=== PATIENT | female | born 1960 | race Caucasian/White ===

== ENCOUNTER 2017-12-12 17:22 | Emergency (ER) | payer MEDICAID, OTHER ==
[~2017-12-12] VITALS: Ht 177.8 cm; Wt 81.6 kg
[2017-12-12 17:50] VITALS: BP 159/90
== END 2017-12-12 19:14 | disposition home or self-care (01) ==
LOC: ER 17:28
DX: J40 Bronchitis, not specified as acute or chronic (principal); F17.210 Nicotine dependence, cigarettes, uncomplicated; H92.09 Otalgia, unspecified ear; Z90.710 Acquired absence of both cervix and uterus

== ENCOUNTER 2020-09-16 00:57 | Emergency (ER) | payer MEDICAID ==
[~2020-09-16] VITALS: Ht 167.6 cm; Wt 78.0 kg
[2020-09-16 01:21] VITALS: BP 132/64
== END 2020-09-16 03:51 | disposition home or self-care (01) ==
LOC: ER 00:57
DX: S33.5XXA Sprain of ligaments of lumbar spine, initial encounter (principal); M54.16 Radiculopathy, lumbar region; X58.XXXA Exposure to other specified factors, initial encounter; Y93.89 Activity, other specified; Y92.89 Other specified places as the place of occurrence of the external cause; Y99.8 Other external cause status
CPT/HCPCS: 72100; 72131

== ENCOUNTER 2020-09-20 02:30 | Emergency (ER) | payer MEDICAID ==
[~2020-09-20] VITALS: Ht 167.6 cm; Wt 78.0 kg
[2020-09-20 05:21] VITALS: BP 117/75
== END 2020-09-20 05:39 | disposition home or self-care (01) ==
LOC: ER 02:43
DX: S83.91XA Sprain of unspecified site of right knee, initial encounter (principal); S09.90XA Unspecified injury of head, initial encounter; N39.0 Urinary tract infection, site not specified; R10.84 Generalized abdominal pain; F17.210 Nicotine dependence, cigarettes, uncomplicated; Z90.710 Acquired absence of both cervix and uterus; Z88.6 Allergy status to analgesic agent; Z88.2 Allergy status to sulfonamides; V89.2XXA Person injured in unspecified motor-vehicle accident, traffic, initial encounter; Y93.89 Activity, other specified; Y92.89 Other specified places as the place of occurrence of the external cause; Y99.8 Other external cause status
CPT/HCPCS: 70450; 73560; 74176

== ENCOUNTER 2021-06-04 02:51 | Emergency (ER) | payer MEDICAID ==
[~2021-06-04] VITALS: Ht 170.2 cm; Wt 78.5 kg
[2021-06-04 04:27] VITALS: BP 133/80
== END 2021-06-04 06:36 | disposition home or self-care (01) ==
LOC: ER 02:51
DX: M79.10 Myalgia, unspecified site (principal); M25.511 Pain in right shoulder; F17.210 Nicotine dependence, cigarettes, uncomplicated; Z90.710 Acquired absence of both cervix and uterus; Z88.2 Allergy status to sulfonamides; Z88.8 Allergy status to other drugs, medicaments and biological substances; Z88.6 Allergy status to analgesic agent
CPT/HCPCS: 71250; 74176; 93005

== ENCOUNTER 2024-05-30 16:19 | Emergency (ER) | payer MEDICAID, OTHER ==
[~2024-05-30] VITALS: Ht 170.2 cm; Wt 85.3 kg
[2024-05-30] MEDS: HYDROcodone-ACET 10/325MG TAB PO ONE (17:56)
[2024-05-30 18:00] VITALS: BP 136/79; PULSE 78; RESP 20; TEMP 97.8; O2SAT 95
[2024-05-30] MEDS: HYDROcodone-ACET 5/325MG TAB PO ONE (18:01)
[2024-05-30] MEDS: KETOROLAC TROMETH 60MG/2ML VIAL IM ONE (18:01)
[2024-05-30 18:14] LABS: Urine Bacteria None Seen /hpf (None Seen)
[2024-05-30 18:34] LABS: Urine Blood 1+ /uL (Negative); Urine Clarity Clear (Clear); Urine Color Yellow (Yellow); Urine Mucus FEW (None Seen); Urine Protein, UAD TRACE (Negative); Urine Specific Gravity 1.035 (1.001-1.035); Urine Urobilinogen Normal (Negative); Urine WBC 7 /hpf (0 - 5); Urine pH 5.5 (5.0-9.0)
== END 2024-05-30 21:56 | disposition left against medical advice (07) ==
LOC: ER 16:19
DX: M54.9 Dorsalgia, unspecified (principal); M79.602 Pain in left arm; M79.601 Pain in right arm; Z53.21 Procedure and treatment not carried out due to patient leaving prior to being seen by health care provider
CPT/HCPCS: 81001; 96372; J1885

== ENCOUNTER 2024-08-19 23:20 | Emergency (ER) | payer OTHER ==
[~2024-08-19] VITALS: Ht 170.2 cm; Wt 87.8 kg
[2024-08-19 23:25] VITALS: BP 140/80; PULSE 84; RESP 20; O2SAT 95
== END 2024-08-20 03:21 | disposition home or self-care (01) ==
LOC: ER 23:20
DX: R07.81 Pleurodynia (principal); R05.9 Cough, unspecified
CPT/HCPCS: 71111

== ENCOUNTER 2024-11-10 16:03 | Emergency (ER) | payer OTHER ==
[~2024-11-10] VITALS: Ht 167.6 cm; Wt 88.4 kg
--- NOTE | 2024-11-10 17:05 | ED.PDOC ---
History of Present Illness HPI Comments 64 y/o F, with a Hx of arthritis and obesity, presents with c/o left shoulder, arm, and hand pain for 5x weeks, today. Patient endorses on sudden and unprovoked onset of symptoms that has been persisting since. She states on pain originating in her left shoulder and radiating down throughout her arm and hand. She reports no additional relevant or pertinent Hx, such as recent injuries or strenuous activities. She denies any weakness, tingling, numbness, or other associated symptoms or modifiers at this time. Chief Complaint: Upper Extremity Time Seen by MD: 16:15 Primary Care Provider: CIERRA Reviewed Notes: Nurses Notes, Medications, Allergies Allergies: Coded Allergies: Aspirin (Verified Allergy, Unknown, 09/16/20) Naproxen (Verified Allergy, Unknown, 09/16/20) Sulfa Antibiotics (Verified Allergy, Unknown, 09/16/20) Information Source: Patient Mode of Arrival: Carried Severity: Moderate Timing: Weeks Duration: Since onset Prehospital treatment: None Past Medical History PAST MEDICAL HISTORY: Arthritis Past Medical History (Other): obesity Surgical History: Hysterectomy MEDICAL STAFF SPECIALIST History: No Pertinent MEDICAL STAFF SPECIALIST History Family History Family History: Reviewed,noncontributory to illness, No family hx of Cancer, No family hx of DM, No family hx of Heart pete, No family hx of HTN, No family hx ofKidney pete, No family hx of Liver pete, No family hx of Lung pete, No family hx of Stroke Social History Smoker: Cigarettes, Less Than 1 Pack/Day Alcohol: Denies ETOH Use Drugs: Denies Drug Use Lives In: Home Constitutional: denies: chills, diaphoresis, fatigue, fever, malaise, sweats, weakness, others EENTM: denies: blurred vision, double vision, ear bleeding, ear discharge, ear drainage, ear pain, ear ringing, eye pain, eye redness, hearing loss, mouth pain, mouth swelling, nasal discharge, nose bleeding, nose congestion, nose pain, photophobia, tearing, throat pain, throat swelling, voice changes, others Respiratory: denies: cough, hemoptysis, orthopnea, SOB at rest, shortness of breath, SOB with excertion, stridor, wheezing, others Cardiovascular: denies: chest pain, dizzy spells, diaphoresis, Dyspnea on exertion, edema, irregular heart beat, left arm pain, lightheadedness, palpitations, PND, syncope, others Gastrointestinal: denies: abdomen distended, abdominal pain, blood streaked bowels, constipated, diarrhea, dysphagia, difficulty swallowing, hematemesis, melena, nausea, poor appetite, poor fluid intake, rectal bleeding, rectal pain, vomiting, others Genitourinary: denies: abnormal vagina bleeding, burning, dyspareunia, dysuria, flank pain, frequency, hematuria, incontinence, pain, , vagina discharge, urgency, others Neurological: denies: dizziness, fainting, headache, left sided numbness, left sided weakness, numbness, paresthesia, pre-existing deficit, right sided numbness, right sided weakness, seizure, speech problems, tingling, tremors, weakness, others Musculoskeletal: reports: joint pain, others (left shoulder and arm and hand pain ); denies: back pain, gout, joint swelling, muscle pain, muscle stiffness, neck pain Integumetry: denies: bruises, change in color, change in hair/nails, dryness, laceration, lesions, lumps, rash, wounds, others Allergic/Immunocompromised: denies: Difficulty Healing, Frequent Infections, Hives, Itching, others Hematologic/Lymphatic: denies: anemia, blood clots, easy bleeding, easy bruising, swollen glands, others All Other Systems: Reviewed and Negative (negative unless otherwise stated above or in HPI) Physical Exam General Appearance: No Apparent Distress, Obese HEENT: Normal ENT Inspection, Pharynx Normal, TMs Normal Neck: Full Range of Motion, Non-Tender, Normal, Normal Inspection Respiratory: Chest Non-Tender, Lungs Clear, No Accessory Muscle Use, No Respira tory Distress, Normal Breath Sounds Cardiovascular: No Edema, No JVD, No Murmur, No Gallop, Normal Peripheral Pulses, Regular Rate/Rhythm Breast Exam: Deferred Gastrointestinal: No Organomegaly, Non Tender, No Pulsatile Mass, Normal Bowel Sounds, Soft Genitalia: Deferred Pelvic: Deferred Rectal: Deferred Extremities: No calf tenderness, Normal capillary refill, Normal inspection, Normal range of motion, No pedal edema, Other (left trapezius muscle tenderness) Musculoskeletal : Location: Left Extremity Location: Shoulder (left trapezius muscle tenderness) Apperance: Normal, Tenderness Neurologic: Alert, various exceptionalities teacher II-XII nml as Tested, No Motor Deficits, Normal Affect, Normal Mood, No Sensory Deficits Cerebellar Function: Normal Reflexes: Normal Skin: Dry, Normal Color, Warm Lymphatic: No Adenopathy Was a procedure done? Was a procedure done?: No Differential Dx Considerations may include: arthritis, radiculopathy X-Ray, Labs, Meds, VS Vital Signs Date Time Temp Pulse Resp B/P (MAP) Pulse Ox O2 Delivery O2 Flow Rate FiO2 11/10/24 16:13 97.5 87 20 148/83 (104) 97 [facility] [id number] [place] [id number] Ph: [phone] DIAGNOSTIC IMAGING Diagnostic Imaging Report : [id number] Signed PATIENT: NIKI GARCIA ACCT: [id number] UNIT: [id number] : 1960 LOC: ER ROOM / BED: / AGE / SEX: 64 / F ADM STATUS: REG ER SERVICE [id number] ORDERING PHYSICIAN: NOEMY PENN PROCEDURE(s): LSHD2 - L SHOULDER 2+ VIEW XRAY REASON: pain ORDER NUMBER(s): [id number], ACCESSION NUMBER(s): [id number] XY L SHOULDER 2+ VIEW XRAY INDICATION: pain TECHNICAL DATA: 3 views were obtained of the left shoulder. COMPARISON: None FINDINGS: There is no fracture or focal bone abnormality. The glenohumeral joint is normally maintained. The acromioclavicular joint appears normal. The humeral head is not high riding. Adjacent soft tissues are within normal limits. Degenerative changes are noted involving the visualized spine. IMPRESSION: No acute fracture or dislocation of the left shoulder. ATED BY: CORA MOSER DO DICTATED DATE/TIME: 11/10/241707 SIGNED BY: CORA MOSER DO SIGNED DATE/TIME: 11/10/241707 CC: X-Ray, Labs, Meds, VS Comment Imaging: X-rays and CT scans were reviewed and interpreted by this provider, imaging shows no fractures and no pathological disease. Pending radiology review. Laboratory: Labs reviewed and interpreted by this provider. No significant abnormalities noted. Patient has prior medical visits reviewed. Med reconciliation performed Vital signs reviewed Time of 1ST Reevaluation: 16:45 Reevaluation 1ST: Unchanged Patient Education/Counseling: Diagnosis, Treatment, Need For Follow Up (Patient advised to follow-up in the emergency room in the next 24 to 48 hours if symptoms do not improve. Advised follow-up with PCP in the next 3 to 5 days. Patient verbalized understanding. ) Family Education/Counseling: No Family Present Departure 1 Departure Time of Disposition: 18:07 Impression: Primary Impression: Musculoskeletal pain Additional Impression: Left shoulder pain Qualified Codes: M25.512 - Pain in left shoulder; G89.29 - Other chronic pain Disposition: HOME / SELF CARE / HOMELESS Condition: Fair e-Prescriptions Methylprednisolone (Medrol Dosepak) 4 Mg Joss 4 MG PO UD, #21 TAB UAD Prov: NOEMY PENN 11/10/24 Cyclobenzaprine Hcl (Cyclobenzaprine Hcl) 5 Mg Tab 1 TAB PO TID PRN, #30 TAB Prov: NOEMY PENN 11/10/24 Discharged With: Self Critical Care Note Critical Care Time?: No Stability Stability form required: No Heart Score Heart Score: Heart Score Response (Comments) Value History N/A 0 EKG N/A 0 Age N/A 0 Risk Factors N/A 0 Troponin N/A 0 Total 0 I personally scribed for NOEMY PENN ([email or web address]) on 11/10/24 at 17:04. Electronically submitted by Moises Cyole ([email or web address]). I personally scribed for NOEMY PENN ([email or web address]) on 11/10/24 at 17:23. Electronically submitted by Moises Coyle ([email or web address]). NOEMY PENN Nov 10, 2024 17:04
--- NOTE | 2024-11-10 17:10 | DVH ---
XY L SHOULDER 2+ VIEW XRAY INDICATION: pain TECHNICAL DATA: 3 views were obtained of the left shoulder. COMPARISON: None FINDINGS: There is no fracture or focal bone abnormality. The glenohumeral joint is normally maintained. The ac romioclavicular joint appears normal. The humeral head is not high riding. Adjacent soft tissues are within normal limits. Degenerative changes are noted involving the visualized spine. IMPRESSION: No acute fracture or dislocation of the left shoulder.
[2024-11-10] MEDS ORDERED: METH4PAK PO (18:07)
[2024-11-10] MEDS ORDERED: CYCL-837 PO (18:07)
[2024-11-10 18:46] VITALS: BP 134/76; TEMP 98
[2024-11-10 18:50] VITALS: PULSE 78; RESP 18; O2SAT 98
[2024-11-10] MEDS: methylPREDNISolone SOD SUCC 125 MG/2 ML VL IM ONE (18:56)
== END 2024-11-10 18:30 | disposition home or self-care (01) ==
LOC: ER 16:03
DX: G89.29 Other chronic pain (principal); M25.512 Pain in left shoulder; M25.542 Pain in joints of left hand; E66.9 Obesity, unspecified; F17.210 Nicotine dependence, cigarettes, uncomplicated; Z90.710 Acquired absence of both cervix and uterus; Z88.2 Allergy status to sulfonamides; Z88.6 Allergy status to analgesic agent; Z98.890 Other specified postprocedural states
CPT/HCPCS: 73030; 96372; 99283; J2919